=== PATIENT | male | born 1965 | race Hispanic/Latino ===

== ENCOUNTER 2022-08-21 16:02 | Emergency (ER) | payer OTHER ==
[~2022-08-21] VITALS: Ht 170.2 cm; Wt 76.2 kg
[2022-08-21 16:04] VITALS: BP 154/72
== END 2022-08-21 17:23 | disposition home or self-care (01) ==
LOC: EDH 16:02
DX: E11.649 Type 2 diabetes mellitus with hypoglycemia without coma (principal); E78.00 Pure hypercholesterolemia, unspecified
CPT/HCPCS: 82948